=== PATIENT | male | born 1990 | race African-American/Black ===

== ENCOUNTER 2018-03-05 01:03 | Emergency (ER) | payer OTHER ==
[~2018-03-05] VITALS: Ht 188 cm; Wt 80.7 kg
[2018-03-05 01:05] VITALS: BP 112/69
--- NOTE | 2018-03-05 01:36 | ED GENERAL ADULT ---
History of Present Illness General Chief Complaint: General Adult Stated Complaint: STD TESTING Source: patient Exam Limitations: no limitations Vital Signs & Intake/Output Vital Signs & Intake/Output Vital Signs Date Time Temp Pulse Resp B/P B/P Pulse O2 O2 Flow FiO2 Mean Ox Delivery Rate 03/05 0117 100 Room Air 03/05 0105 97.4 74 18 112/69 98 Room Air Allergies Coded Allergies: No Known Allergies (03/05/18) Reconcile Medications Doxycycline Hyclate 100 MG TABLET 1 TAB PO BID infection Triage Note: TRIAGE: PATIENT TO ER FROM HOME REQUESTING STD CHECK, UNKNOWN IF EXPOSURE, +WHITE DISCHARGE X 2 DAYS FROM PENIS. DENIES URINARY PAIN/ DIFFICULTIES. Triage Nurses Notes Reviewed? yes Onset: Gradual Duration: day(s): Timing: recent history Injury Environment: home Severity: mild Associated Symptoms: burning with urination HPI: 28 yo gentleman presents with penile discharge x 2 days. He notes that he had unprotected heterosexual intercourse several days before that. He has no fever, chills, testicular pain. He is otherwise well. Past History Travel History Traveled to [place] past 21 day No Medical History Any Pertinent Medical History? see below for history Neurological: NONE EENT: NONE Cardiovascular: NONE Respiratory: NONE Gastrointestinal: NONE Hepatic: NONE Renal: NONE Musculoskeletal: NONE Psychiatric: NONE Endocrine: NONE Blood Disorders: NONE Cancer(s): NONE ENVIRONMENTAL HEALTH SPECIALIST/Reproductive: NONE Surgical History Surgical History: none Psychosocial History What is your primary language Vietnamese Tobacco Use: Never used Family History Hx Contributory? No Review of Systems Review of Systems Constitutional: Reports: no symptoms. EENTM: Reports: no symptoms. Respiratory: Reports: no symptoms. Cardiovascular: Reports: no symptoms. GI: Reports: no symptoms. Genitourinary: Reports: no symptoms. Musculoskeletal: Reports: no symptoms. Skin: Reports: no symptoms. Neurological/Psychological: Reports: no symptoms. Hematologic/Endocrine: Reports: no symptoms. Immunologic/Allergic: Reports: no symptoms. All Other Systems: Reviewed and Negative Physical Exam Physical Exam General Appearance: well developed/nourished, no apparent distress Head: atraumatic, normal appearance Eyes: Bilateral: normal appearance. Ears, Nose, Throat: normal pharynx Neck: normal inspection Respiratory: no respiratory distress Gastrointestinal: normal bowel sounds, soft, non-tender Extremities: normal inspection Neurologic/Psych: no motor/sensory deficits, awake, alert, oriented x 3 Skin: intact Comments: penile exam.... milky clear discharge. no testicular tenderness. Core Measures ACS in differential dx? No CVA/TIA Diagnosis: No Sepsis Present: No Sepsis Focused Exam Completed? No Progress Differential Diagnoses I considered the following diagnoses in my evaluation of the patient: gc chlamydia vs other. Plan of Care: Orders Procedure Date/time Status CHLAMYDIA-GC DNA PROBE 03/05 204 Active GC DNA PROBE 03/05 014 Active Microbiology 03/05 204 URINE ROUT: GC DNA Probe - ORD 03/05 204 URINE ROUT: Chlamydia DNA Probe ([facility]GIE) - ORD Initial ED EKG: none Departure Departure Disposition: HOME OR SELF CARE Condition: Stable Clinical Impression Primary Impression: Sexually transmitted infection Referrals: Patient Has No Primary Care Dr (PCP/Family) Departure Forms: Customer Survey General Discharge Information Prescriptions: Current Visit Scripts Doxycycline Hyclate 1 TAB PO BID #20 TAB Comments pt given meds, rx for doxy... close follow up advised Critical Care Note Critical Care Note Critical Care Time: non-applicable
[2018-03-05] MEDS ORDERED: DOXYCYCLINE HY100 M4 PO (01:54)
== END 2018-03-05 02:29 ==
LOC: ERH 01:03
DX: A64 Unspecified sexually transmitted disease (principal)
CPT/HCPCS: 87491; 87591; 96372; J0696